=== PATIENT | female | born 1995 | race Caucasian/White ===

== ENCOUNTER 2016-12-29 14:01 | Emergency (ER) | payer MEDICAID ==
[~2016-12-29] VITALS: Ht 172.7 cm; Wt 104.3 kg
[2016-12-29 15:08] VITALS: BP 143/97
--- NOTE | 2016-12-29 16:49 | NUR ---
PT PRESENTS TO ER W/C/O VOMITING X2 DAYS. HX ANXIETY; DENIES DIARRHEA; SKIN IS PINK/WARM/DRY; AAOX4 WITH EVEN AND STEADY GAIT; LUNGS CLEAR BL; HR EVEN AND REGULAR; PT DENIES ANY FEVER, CP, SOB, OR COUGH AT THIS TIME; PATIENT STATES PAIN OF 8/10 AT THIS TIME; VSS; PATIENT POSITIONED FOR COMFORT; HOB ELEVATED; BEDRAILS UP X2; BED DOWN. ER MD MADE AWARE OF PT STATUS.
--- NOTE | 2016-12-29 16:51 | NUR ---
Patient ambulated to bed 05.
--- NOTE | 2016-12-29 16:55 | NUR ---
Dr. Mcghee evaluating patient at bedside.
[2016-12-29] MEDS ORDERED: ONDANSETRON 4 MG/2 ML VIAL IVP ONE (17:00)
[2016-12-29] MEDS ORDERED: KETOROLAC 30 MG/ML VIAL IVP ONE (17:00)
[2016-12-29] MEDS ORDERED: NACL 0.9% 1,000 ML IV ONE (17:00)
[2016-12-29 18:04] VITALS: BP 136/76
--- NOTE | 2016-12-29 18:04 | NUR ---
Patient discharged with v/s stable. Written and verbal after care instructions given and explained. Patient alert, oriented and verbalized understanding of instructions. Ambulatory with steady gait. All questions addressed prior to discharge. ID band removed. Patient advised to follow up with PMD. Rx of ZOFRAN, KEFLEX given. Patient educated on indication of medication including possible reaction and side effects. Opportunity to ask questions provided and answered.
== END 2016-12-29 18:04 | disposition home or self-care (01) ==
LOC: MED 14:01
DX: R11.10 Vomiting, unspecified (principal); R10.33 Periumbilical pain
CPT/HCPCS: 96361; 96374; 96375; 99284; J1885; J2405; J7030

== ENCOUNTER 2019-11-03 12:52 | Emergency (ER) | payer MEDICAID, OTHER ==
[~2019-11-03] VITALS: Ht 172.7 cm; Wt 101.2 kg
--- NOTE | 2019-11-03 13:00 | NUR ---
PT TO ER BED 9
[2019-11-03 13:04] VITALS: BP 129/66
--- NOTE | 2019-11-03 13:28 | NUR ---
C/O GENERALIZED WEAKNESS. HX OF SEIZURE. LAST SEIZURE WAS YESTERDAY MORNING 11/02/2019. PT WAS SEEN ON [facility] ON 11/02/2019, PT WAS DISCHARGED SAME DAY, WAS PRESCRIBED WITH NEW MEDICATION BUT PT STATES NOT GETTING PRESCRIBED MEDICATION. SEIZURE PRECAUION TAKEN, BED IN LOW POSITION, SEIZURE PADS ON BOTH SIDE RAILS. SIDE RAILS UP X2. WILL CONTINUE TO MONITOR.
[2019-11-03] MEDS ORDERED: NACL 0.9% 1,000 ML IV ONE (13:35)
[2019-11-03 14:23] LABS: BASOPHILS % (AUTO) 0.3 % (0.0-2.0); EOSINOPHILS % (AUTO) 0.3 % (0.0-4.0); HEMATOCRIT 43.9 % (36-48); HEMOGLOBIN 15.4 g/dL (12.0-16.0); LYMPHOCYTES # (AUTO) 1.1 K/uL (2.5-16.5); MEAN CORPUSCULAR HEMOGLOBIN 31 pg (27-31); MEAN CORPUSCULAR HGB CONC 35 g/dL (33-37); MEAN CORPUSCULAR VOLUME 87.5 fL (80-94); MONOCYTES # (AUTO) 0.7 K/uL (0.8-1.0); MONOCYTES % (AUTO) 8.8 % (1.7-9.3); NEUTROPHILS # (AUTO) 6.2 K/uL (1.8-7.7); NEUTROPHILS % (AUTO) 76.6 % (42.2-75.2); PLATELET COUNT (AUTO) 219 K/uL (140-450); RED BLOOD CELL COUNT(AUTO) 5.01 MIL/uL (4.20-5.40); RED CELL DISTRIBUTION WIDTH 13.2 % (11.6-13.7)
--- NOTE | 2019-11-03 14:39 | NUR ---
PT LAYING COMFORTBALY IN BED, SEIZURE PRECAUTIONS TAKEN, SEIZURE BADS ON BOTH SIDE RAILS, BED IN LOW POSITION, SIDE RAILS UP X2. NO C/O PAIN AT THE MOMENT. WILL CONTINUE TO MONITOR.
--- NOTE | 2019-11-03 15:00 | NUR ---
FAMILY AT BEDSIDE.
[2019-11-03 15:06] LABS: BARBITURATE, URINE NEGATIVE ng/ml (NEG <=200); BENZODIAZEPINE, URINE POSITIVE ng/mL (NEG <=200); CANNABINOID, URINE POSITIVE ng/mL (NEG <=50); COCAINE, URINE NEGATIVE ng/mL (NEG <=300); OPIATE, URINE NEGATIVE ng/mL (NEG <=2000); PHENCYCLIDINE SCREEN,URINE NEGATIVE ng/mL (NEG <=25)
[2019-11-03 15:45] LABS: ACETAMINOPHEN < 0.5 ug/ml (10-30); ALBUMIN 4.5 g/dL (3.4-5.0); ANION GAP 12.8 (8-16); ASPARTATE AMINOTRANSFERASE 14 U/L (15-37); CARBON DIOXIDE 24.3 mmol/L (21-32); CHLORIDE 104 mmol/L (98-107); CREATININE 0.7 mg/dL (0.6-1.3); GFR ARICAN-AMERICAN 131 mL/min (>90); GLUCOSE 100 mg/dL (74-106); POTASSIUM 4.1 mmol/L (3.5-5.1); SALICYLATE < 2.8 mg/dL (2.8-20.0); SODIUM SERUM 137 mmol/L (136-145); TOTAL BILIRUBIN 0.9 mg/dL (0.0-1.0); UREA NITROGEN, BLOOD 11 mg/dL (7-18)
[2019-11-03 16:09] VITALS: BP 120/61
--- NOTE | 2019-11-03 16:09 | NUR ---
Patient discharged with v/s stable. Written and verbal after care instructions given and explained. Patient verbalized understanding. Ambulatory with steady gait. All questions addressed prior to discharge. Advised to follow up with PMD.
--- NOTE | 2019-11-06 08:26 | NUR ---
Late entry. Confirmed with RN that 0.9 NS IV completed at 1500
== END 2019-11-03 16:09 | disposition home or self-care (01) ==
LOC: MED 12:52
DX: R53.1 Weakness (principal); F41.9 Anxiety disorder, unspecified; F12.90 Cannabis use, unspecified, uncomplicated
CPT/HCPCS: 36415; 80053; 80305; 81002; 81025; 85025; 93005; 99284; G0480; G0482; J7030

== ENCOUNTER 2020-05-18 18:57 | Emergency (ER) | payer OTHER ==
[~2020-05-18] VITALS: Ht 172.7 cm; Wt 108.9 kg
[2020-05-18 19:02] VITALS: BP 133/71
--- NOTE | 2020-05-18 19:07 | NUR ---
provided pt with a urine cup for sample
--- NOTE | 2020-05-18 19:14 | NUR ---
24 Y/O FEMALE PRESENTS TO ER WITH C/O EPIGASTRIC PAIN X 2 DAYS. 04/15 PAIN. PT STATES SHE HAS BEEN HAVING EPIGASTRIC ABDOMINAL PAIN WITH DIARRHEA, NAUSEA X 2 DAYS. PT STATES SHE HAD VOMITING , AND WEDNESDAY. DENIES TRAUMA/INJURY, RADIATION, SOB, COUGH FEVER, CHILLS. PT IS AFEBRILE. VSS, R/R EQUAL, AND UNLABORED. SIDE RAIL X1, BED IN LOW POSITION, WILL CONTINUE TO MONITOR. NKDA PMH: ASTHMA; SEIZURES; ANXIETY
[2020-05-18] MEDS ORDERED: ONDANSETRON 4 MG ODT PO ONE (19:25)
[2020-05-18] MEDS ORDERED: DICYCLOMINE HCL LIQUID 20 MG, ALUMINUM HYD/MAG/SIMETHICONE 30 ML, LIDOCAINE VISCOUS 2% ... PO ONE ×3 (19:25)
[2020-05-18] MEDS ORDERED: ALUMINUM HYD/MAG/SIMETHICONE 30 ML UDC ONE (19:31)
[2020-05-18] MEDS ORDERED: LIDOCAINE VISCOUS 2% 20 ML UDC ONE (19:31)
[2020-05-18] MEDS ORDERED: DICYCLOMINE HCL LIQUID 10 MG/5 ML UDC ONE (19:32)
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
--- NOTE | 2020-05-18 19:40 | NUR ---
EUGENIE MADE AWARE.
--- NOTE | 2020-05-18 19:50 | NUR ---
ORDERED LABS DRAWN, AND SENT TO LAB
[2020-05-18 21:41] LABS: BASOPHILS % (AUTO) 0.2 % (0.0-2.0); EOSINOPHILS # (AUTO) 0.3 K/uL (0-0.4); EOSINOPHILS % (AUTO) 4.5 % (0.0-4.0); HEMOGLOBIN 13.9 g/dL (12.0-16.0); LYMPHOCYTES # (AUTO) 1.8 K/uL (2.5-16.5); LYMPHOCYTES % (AUTO) 28.8 % (20.5-51.1); MEAN CORPUSCULAR HEMOGLOBIN 31 pg (27-31); MEAN CORPUSCULAR HGB CONC 34 g/dL (33-37); MEAN CORPUSCULAR VOLUME 90.2 fL (80-94); MONOCYTES # (AUTO) 0.7 K/uL (0.8-1.0); MONOCYTES % (AUTO) 11.1 % (1.7-9.3); NEUTROPHILS # (AUTO) 3.4 K/uL (1.8-7.7); NEUTROPHILS % (AUTO) 55.4 % (42.2-75.2); PLATELET COUNT (AUTO) 226 K/uL (140-450); RED BLOOD CELL COUNT(AUTO) 4.54 MIL/uL (4.20-5.40); RED CELL DISTRIBUTION WIDTH 12.6 % (11.6-13.7); WHITE BLOOD COUNT (AUTO) 6.1 K/uL (4.8-10.8)
[2020-05-18 21:46] LABS: BILIRUBIN,URINE NEGATIVE (NEGATIVE); BLOOD, URINE NEGATIVE (NEGATIVE); COLOR,URINE YELLOW (YELLOW); LEUKOCYTE ESTERASE ,URINE NEGATIVE (NEGATIVE); NITRITE, URINE NEGATIVE (NEGATIVE); UGLUCOSE NEGATIVE (NEGATIVE)
[2020-05-18 21:50] LABS: APPEARANCE,URINE SLIGHTLY CLOUDY (CLEAR)
[2020-05-18 22:01] LABS: ALBUMIN 3.5 g/dL (3.4-5.0); ANION GAP 8.6 (8-16); CARBON DIOXIDE 29.5 mmol/L (21-32); CREATININE 0.7 mg/dL (0.6-1.3); POTASSIUM 4.1 mmol/L (3.5-5.1); TOTAL BILIRUBIN 0.2 mg/dL (0.0-1.0)
[2020-05-18 22:22] VITALS: BP 131/88
== END 2020-05-18 22:22 | disposition home or self-care (01) ==
LOC: MED 18:57
DX: R10.84 Generalized abdominal pain (principal); R11.2 Nausea with vomiting, unspecified; R19.7 Diarrhea, unspecified; F41.9 Anxiety disorder, unspecified; J45.909 Unspecified asthma, uncomplicated
CPT/HCPCS: 36415; 80053; 81003; 81025; 83690; 85025; 99283; Q0162

== ENCOUNTER 2020-06-20 17:17 | Emergency (ER) | payer OTHER ==
[~2020-06-20] VITALS: Ht 172.7 cm; Wt 113.4 kg
[2020-06-20 17:31] VITALS: BP 119/82
--- NOTE | 2020-06-20 18:10 | NUR ---
COVID SWAB OBTAINED AND DROPPED OFF AT LAB ALONG WITH PAPERWORK
--- NOTE | 2020-06-20 18:17 | NUR ---
24/F C/O COUGH, RHINORRHEA, LOSS OF SMELL, SLIGHT SOB X 3 DAYS. NO FEVER, COVID POS CONTACTS, TRAVEL. VSS. APPEARS NAD. NO RESP DISTRESS. SPEAKING IN FULL CLEAR SENTENCES. HX- SZ, ASTHMA, ANXIETY NKA
--- NOTE | 2020-06-20 18:25 | NUR ---
Patient discharged with v/s stable. Written and verbal after care instructions given and explained. Patient alert, oriented and verbalized understanding of instructions. Ambulatory with steady gait. All questions addressed prior to discharge. ID band removed. Patient advised to follow up with PMD. Rx of IBUPROFEN, ACETAMINOPHEN, ALBUTEROL, PROMETHAZINE DM given. Patient educated on indication of medication including possible reaction and side effects. Opportunity to ask questions provided and answered.
[2020-06-20 18:29] VITALS: BP 119/82
--- NOTE | 2020-06-21 22:11 | NUR ---
late entry--- positive covid results for Novel Covid19 test. information sent off to infection control
== END 2020-06-20 18:25 | disposition home or self-care (01) ==
LOC: MED 17:17
DX: U07.1 COVID-19 (principal); J45.909 Unspecified asthma, uncomplicated; R56.9 Unspecified convulsions
CPT/HCPCS: 99283; U0003

== ENCOUNTER 2022-05-12 18:25 | Emergency (ER) | payer MEDICAID, OTHER ==
[~2022-05-12] VITALS: Ht 172.7 cm; Wt 129.3 kg
[2022-05-12 18:40] VITALS: BP 141/75
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
[2022-05-12] MEDS: levETIRAcetam 500 MG TAB PO ONE (20:55)
--- NOTE | 2022-05-12 20:55 | NUR ---
PT TO CT
--- NOTE | 2022-05-12 20:55 | NUR ---
PATIENT TO CT
[2022-05-12 20:59] LABS: BASOPHILS % (AUTO) 0.4 % (0.0-2.0); EOSINOPHILS # (AUTO) 0.1 K/uL (0-0.4); EOSINOPHILS % (AUTO) 0.8 % (0.0-4.0); HEMATOCRIT 41.8 % (36-48); HEMOGLOBIN 14.1 g/dL (12.0-16.0); LYMPHOCYTES # (AUTO) 1.1 K/uL (2.5-16.5); LYMPHOCYTES % (AUTO) 9.6 % (20.5-51.1); MEAN CORPUSCULAR HEMOGLOBIN 30 pg (27-31); MEAN CORPUSCULAR HGB CONC 34 g/dL (33-37); MEAN CORPUSCULAR VOLUME 87.4 fL (80-94); MONOCYTES # (AUTO) 0.9 K/uL (0.8-1.0); MONOCYTES % (AUTO) 8.2 % (1.7-9.3); NEUTROPHILS # (AUTO) 9.2 K/uL (1.8-7.7); PLATELET COUNT (AUTO) 244 K/uL (140-450); RED BLOOD CELL COUNT(AUTO) 4.78 MIL/uL (4.20-5.40); RED CELL DISTRIBUTION WIDTH 13.3 % (11.6-13.7); WHITE BLOOD COUNT (AUTO) 11.3 K/uL (4.8-10.8)
--- NOTE | 2022-05-12 21:10 | NUR ---
PT BACK FROM CT. 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 PATIENT REQUESTING MEDICATION FOR HEADACHE. 04/15 PAIN LEVEL
[2022-05-12] MEDS: ACETAMINOPHEN 325 MG TAB PO ONE (21:15)
[2022-05-12 21:20] LABS: ALBUMIN 3.7 g/dL (3.4-5.0); ANION GAP 13.5 (8-16); CARBON DIOXIDE 25.2 mmol/L (21-32); CREATININE 0.6 mg/dL (0.6-1.3); POTASSIUM 3.7 mmol/L (3.5-5.1); TOTAL BILIRUBIN 0.5 mg/dL (0.0-1.0)
[2022-05-12 22:39] VITALS: BP 116/62
--- NOTE | 2022-05-12 22:39 | NUR ---
Chart checked and completed.
== END 2022-05-12 22:39 | disposition home or self-care (01) ==
LOC: MED 18:25
DX: S09.90XA Unspecified injury of head, initial encounter (principal); R56.9 Unspecified convulsions; J45.909 Unspecified asthma, uncomplicated; F41.9 Anxiety disorder, unspecified; F32.9 Major depressive disorder, single episode, unspecified; W18.30XA Fall on same level, unspecified, initial encounter; Y93.89 Activity, other specified; Y92.89 Other specified places as the place of occurrence of the external cause; Y99.8 Other external cause status
CPT/HCPCS: 36415; 70450; 80053; 81002; 81025; 85025; 99284

== ENCOUNTER 2022-07-20 08:50 | Emergency (ER) | payer MEDICAID ==
[~2022-07-20] VITALS: Ht 177.8 cm; Wt 90.7 kg
[2022-07-20 08:51] VITALS: BP 128/68
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
[2022-07-20] MEDS ORDERED: levETIRAcetam 500 MG TAB PO ONE (09:35)
[2022-07-20 10:41] VITALS: BP 124/70
== END 2022-07-20 10:41 | disposition home or self-care (01) ==
LOC: MED 08:50
DX: F41.0 Panic disorder [episodic paroxysmal anxiety] (principal); J45.909 Unspecified asthma, uncomplicated
CPT/HCPCS: 99283

== ENCOUNTER 2022-09-29 10:08 | Emergency (ER) | payer MEDICAID ==
[~2022-09-29] VITALS: Ht 175.3 cm; Wt 86.2 kg
[2022-09-29 10:10] VITALS: BP 138/88
--- NOTE | 2022-09-29 10:15 | NUR ---
PT AMBULATED TO BED 9
[2022-09-29] MEDS ORDERED: LORazepam 1 MG TAB PO ONE (11:55)
[2022-09-29] MEDS ORDERED: KETOROLAC 30 MG/ML VIAL IM ONE (11:55)
--- NOTE | 2022-09-29 12:08 | NUR ---
27/F PRESENTS TO ED WITH C/O BACK PAIN SINCE YESTERDAY, DENIES RECENT INJURY OR TRAUMA. STATES THESE EPISODES OCCUR SINCE HAVING HER CHILD AND RECEIVING 3 EPIDURALS, PATIENT REPORTS TAKING MOTRIN WITH NO RELIEF. DENIES N/V/D OR URINARY SYMPTOMS.
[2022-09-29] MEDS ORDERED: LIDOCAINE 5% 1 EA PATCH TP ONE (12:56)
[2022-09-29 13:05] LABS: APPEARANCE,URINE HAZY (CLEAR); BILIRUBIN,URINE NEGATIVE (NEGATIVE); BLOOD, URINE NEGATIVE (NEGATIVE); COLOR,URINE YELLOW (YELLOW); LEUKOCYTE ESTERASE ,URINE TRACE (NEGATIVE); NITRITE, URINE NEGATIVE (NEGATIVE); PH,URINE 7.5 (5.0-9.0); UGLUCOSE NEGATIVE (NEGATIVE)
[2022-09-29 13:17] LABS: WBC,URINE 20-60 /HPF (0-5)
[2022-09-29 13:18] LABS: RBC,URINE NONE SEEN /HPF (0-5)
[2022-09-29] MEDS ORDERED: GABA300C PO (13:53)
[2022-09-29] MEDS ORDERED: LID5T TP (13:53)
[2022-09-29] MEDS ORDERED: NITR100C7 PO (13:53)
[2022-09-29] MEDS ORDERED: BACL10TA4 PO (13:53)
[2022-09-29] MEDS ORDERED: NAPR-54 PO (13:54)
[2022-09-29 14:01] VITALS: BP 104/58
--- NOTE | 2022-09-29 14:02 | NUR ---
Patient discharged with v/s stable. Written and verbal after care instructions ABOUT RADICULAR PAIN, URINARY TRACT INFECTIONgiven and explained. Patient alert, oriented and verbalized understanding of instructions. Ambulatory with steady gait. All questions addressed prior to discharge. ID band removed. Patient advised to follow up with PMD. Rx of NEURONTIN, LIDODERM PATCH, NAPROSYN AND MACROBID given. Patient educated on indication of medication including possible reaction and side effects. Opportunity to ask questions provided and answered.
[2022-09-30] MEDS ORDERED: LIDOCAINE 5% 1 EA PATCH TP SCH (09:00)
== END 2022-09-29 14:02 | disposition home or self-care (01) ==
LOC: MED 10:08
DX: S39.012A Strain of muscle, fascia and tendon of lower back, initial encounter (principal); N39.0 Urinary tract infection, site not specified; M54.16 Radiculopathy, lumbar region; J45.909 Unspecified asthma, uncomplicated; F41.9 Anxiety disorder, unspecified; X58.XXXA Exposure to other specified factors, initial encounter; Y93.89 Activity, other specified; Y92.89 Other specified places as the place of occurrence of the external cause; Y99.8 Other external cause status
CPT/HCPCS: 81001; 81025; 87086; 96372; 99283; J1885

== ENCOUNTER 2022-11-05 19:47 | Emergency (ER) | payer MEDICAID ==
[~2022-11-05] VITALS: Ht 175.3 cm; Wt 113.4 kg
[2022-11-05 19:47] VITALS: BP 128/82
[~2022-11-05 19:47] MED LIST: BACL10TA4 PO; GABA300C PO; LID5T TP; NAPR-54 PO; NITR100C7 PO
--- NOTE | 2022-11-05 19:47 | NUR ---
STACI, TO LOBBY, VIA WHEELCHAIR
--- NOTE | 2022-11-05 20:31 | NUR ---
PER CLINICAL DATA COORDINATOR, PT LEFT AT THIS TIME WITHOUT BEING SEEN TRACY CHEN.
--- NOTE | 2022-11-05 20:31 | NUR ---
PATIENT LEFT WITHOUT BEING SEEN BY DR. Acuña. NO FURTHER CARE PROVIDED FOR PATIENT.
== END 2022-11-05 20:31 | disposition left against medical advice (07) ==
LOC: MED 19:47
DX: F41.9 Anxiety disorder, unspecified (principal); Z56.9 Unspecified problems related to employment; Z53.21 Procedure and treatment not carried out due to patient leaving prior to being seen by health care provider
CPT/HCPCS: 99281

== ENCOUNTER 2024-03-30 11:53 | Emergency (ER) | payer SELFPAY ==
[~2024-03-30] VITALS: Ht 170.2 cm; Wt 108.9 kg
[~2024-03-30 11:53] MED LIST changes: +NAPR-337 PO; -NAPR-54 PO
[2024-03-30] MEDS ORDERED: LORazepam 2 MG/ML VIAL ONE (12:01)
[2024-03-30 12:04] VITALS: BP 100/72; PULSE 81; RESP 22; TEMP 98.4; O2SAT 99
[2024-03-30] MEDS: LORazepam 2 MG/ML VIAL IVP ONE ×2 (12:07→12:12)
[2024-03-30 12:29] LABS: BASOPHILS % (AUTO) 0.7 % (0.0-2.0); EOSINOPHILS # (AUTO) 0.1 K/uL (0-0.4); EOSINOPHILS % (AUTO) 1.8 % (0.0-4.0); HEMOGLOBIN 15.9 g/dL (12.0-16.0); LYMPHOCYTES # (AUTO) 1.6 K/uL (2.5-16.5); LYMPHOCYTES % (AUTO) 31.4 % (20.5-51.1); MEAN CORPUSCULAR HEMOGLOBIN 30 pg (27-31); MEAN CORPUSCULAR HGB CONC 34 g/dL (33-37); MEAN CORPUSCULAR VOLUME 88.3 fL (80-94); MONOCYTES # (AUTO) 0.5 K/uL (0.8-1.0); MONOCYTES % (AUTO) 9.8 % (1.7-9.3); NEUTROPHILS # (AUTO) 2.8 K/uL (1.8-7.7); NEUTROPHILS % (AUTO) 56.3 % (42.2-75.2); PLATELET COUNT (AUTO) 253 K/uL (140-450); RED BLOOD CELL COUNT(AUTO) 5.32 MIL/uL (4.20-5.40); RED CELL DISTRIBUTION WIDTH 13.3 % (11.6-13.7)
[2024-03-30] MEDS ORDERED: levETIRAcetam 100 MG/ML VIAL IV ONE (12:33)
[2024-03-30 12:47] LABS: ANION GAP 17.7 (8-16); CALCIUM 9.1 mg/dL (8.5-10.1); CREATININE 0.6 mg/dL (0.6-1.3); POTASSIUM 3.7 mmol/L (3.5-5.1)
[2024-03-30 13:00] LABS: MAGNESIUM 2.1 mg/dL (1.8-2.4); PHOSPHORUS 1.7 mg/dL (2.5-4.9); THYROID STIMULATING HORMONE 0.31 uIU/mL (0.34-3.74)
[2024-03-30] MEDS: levETIRAcetam 1,000 MG in NACL 0.9% 100 ML IV ONE (13:05)
[2024-03-30] MEDS: NACL 0.9% 1,000 ML IV ONE (13:23)
[2024-03-30 16:44] VITALS: BP 119/57; PULSE 97; RESP 18; TEMP 97.4; O2SAT 98
== END 2024-03-30 17:25 | disposition home or self-care (01) ==
LOC: MED 11:53
DX: R56.9 Unspecified convulsions (principal); F41.9 Anxiety disorder, unspecified; F10.129 Alcohol abuse with intoxication, unspecified; J45.909 Unspecified asthma, uncomplicated; Z79.1 Long term (current) use of non-steroidal anti-inflammatories (NSAID); Z79.899 Other long term (current) drug therapy; Y90.5 Blood alcohol level of 100-119 mg/100 ml
CPT/HCPCS: 36415; 73562; 80048; 83605; 83735; 84100; 84443; 84703; 85025; 96365; 96375; 99284; G0482; J1953; J2060; Q0092